=== PATIENT | female | born 1970 | race Caucasian/White ===

== ENCOUNTER 2016-04-06 15:02 | Emergency (ER) | END 2016-04-06 15:53 | disposition left against medical advice (07) | DX: Z53.21 Procedure and treatment not carried out due to patient leaving prior to being seen by health care provider (principal) ==

== ENCOUNTER 2016-04-06 16:55 | Emergency (ER) | END 2016-04-06 17:44 | disposition home or self-care (01) | DX: J20.9 Acute bronchitis, unspecified (principal) ==

== ENCOUNTER 2016-04-23 12:31 | Emergency (ER) | payer OTHER ==
[~2016-04-23] VITALS: Wt 71.0 kg
[~2016-04-23 12:31] MED LIST: AZIT250T94 PO; D-ME473S18 PO; NITR-58 PO; PHEN-616 PO; PRED20TA PO; TYL500 PO
[2016-04-23] MEDS ORDERED: FAMOTIDINE 20 MG TAB PO STA (13:24)
[2016-04-23] MEDS ORDERED: LIDOCAINE/MYLANTA 40 ML BTL PO STA (13:24)
[2016-04-23 14:19] LABS: ADD UMIC YES; URINE BILIRUBIN (Dip) NEGATIVE (NEGATIVE); URINE BLOOD (Dip) TRACE (NEGATIVE); URINE COLOR LT. YELLOW (YELLOW); URINE GLUCOSE (Dip) NEGATIVE (NEGATIVE); URINE KETONES (Dip) NEGATIVE (NEGATIVE); URINE LEUKOCYTE ESTERASE (Dip) NEGATIVE (NEGATIVE); URINE NITRITE (Dip) NEGATIVE (NEGATIVE); URINE TOTAL PROTEIN (Dip) NEGATIVE (NEGATIVE); URINE UROBILINOGEN (Dip) 0.2 E.U./dL (0.1-1.0)
[2016-04-23 14:20] LABS: BASOPHILS % 0.4 % (0.0-2.0); EOSINOPHILS # 0.2 10^3/ul (0.0-0.5); EOSINOPHILS % 1.8 % (0.0-7.0); HEMOGLOBIN 14.8 g/dl (12.0-16.0); LYMPHOCYTES # 3.9 10^3/ul (0.8-2.9); LYMPHOCYTES % 38.7 % (15.0-51.0); MEAN CORPUSCULAR HEMOGLOBIN 29.4 pg (29.0-33.0); MEAN CORPUSCULAR HGB CONC 34.3 g/dl (32.0-37.0); MEAN CORPUSCULAR VOLUME 85.8 fl (82.0-101.0); MEAN PLATELET VOLUME 7.6 fl (7.4-10.4); MONOCYTE # 0.5 10^3/ul (0.3-0.9); MONOCYTES % 5.1 % (0.0-11.0); NEUTROPHIL # 5.5 10^3/ul (1.6-7.5); PLATELET COUNT 312 10^3/UL (140-440); RED BLOOD COUNT 5.02 10^6/ul (4.20-5.40); RED CELL DISTRIBUTION WIDTH 13.8 % (11.5-14.5); UNCORRECTED WBC 10.2 10^3/ul (4.8-10.8); WHITE BLOOD COUNT 10.2 10^3/ul (4.8-10.8)
[2016-04-23 14:24] LABS: CONDITION 1
[2016-04-23 14:31] LABS: ALBUMIN 4.9 g/dl (3.3-4.9)
[2016-04-23 14:32] LABS: POTASSIUM 4.4 mmol/L (3.5-5.1)
[2016-04-23 14:34] LABS: BILIRUBIN,INDIRECT 0.5 mg/dl (0-1.1); BILIRUBIN,TOTAL 0.5 mg/dl (0.2-1.3); CREATININE 0.58 mg/dl (0.44-1.00)
[2016-04-23 14:35] LABS: ALBUMIN/GLOBULIN RATIO 1.44; CALCIUM 9.6 mg/dl (8.4-10.2); TOTAL PROTEIN 8.3 g/dl (6.1-8.1)
[2016-04-23 14:45] LABS: URINE RBCS 0-2 /HPF (0)
[2016-04-23] MEDS ORDERED: FAMO-18 PO (14:58)
[2016-04-23] MEDS ORDERED: LORAZEPAM 1 MG TAB PO ONE (15:00)
--- NOTE | 2016-04-23 15:17 | ERD ---
ER Documentation Chief Complaint Date/Time DATE: 04/23/16 TIME: 15:13 Chief Complaint ABDOMINAL PAIN AND ABDOMINAL DISTENTION FOR 4 DAYS. NAUSEA NO VOMITNG HPI Patient is a 45-year-old female who presents to the ED with epigastric pain. She states that she has a history of gastritis and takes omeprazole. She states that she has had these symptoms in the past. She ran out of her omeprazole. She complains of reflux and burning. She denies nausea, vomiting or diarrhea. She denies fever or chills. She denies diarrhea or constipation last bowel movement was today. No blood. Denies chest pain, shortness of breath or difficulty breathing. ROS All systems reviewed and are negative except as per history of present illness. Medications Home Meds Active Scripts Famotidine* (Pepcid*) 20 Mg Tablet, 20 MG PO BID for 30 Days, TAB Prov:NOEL SRIVASTAVA PA-C 04/23/16 Acetaminophen* (Tylenol*) 500 Mg Tab, 1000 MG PO Q8 Y for PAIN AND OR ELEVATED TEMP for 3 Days, TAB Prov:JAMESON POSEY 04/06/16 Dextromethorphan Hb-Promethazine Hcl (Promethazine DM Syrup) 473 Ml Syrup, 10 ML PO Q6H Y for COUGH, #4 OZ Prov:JAMESON POSEY 04/06/16 Azithromycin* (Zithromax*) 250 Mg Tablet, 250 MG PO .ZPACK DIRECTED, #6 TAB TAKE 500 MG (2 TABS) THE FIRST DAY THEN 250 MG (1 TAB) DAYS 2-5 Prov:JAMESON POSEY 04/06/16 Azithromycin* (Zithromax*) 250 Mg Tablet, 250 MG PO .ZPACK DIRECTED, #6 TAB TAKE 500 MG (2 TABS) THE FIRST DAY THEN 250 MG (1 TAB) DAYS 2-5 Prov:JUDIT ORANTES MD 11/03/15 Dextromethorphan Hb-Promethazine Hcl (Promethazine DM Syrup) 473 Ml Syrup, 5 ML PO Q6H Y for COUGH, #4 OZ Prov:JUDIT ORANTES MD 11/03/15 Prednisone* (Prednisone*) 20 Mg Tab, 40 MG PO DAILY for 5 Days, TAB Prov:JUDIT ORANTES MD 11/03/15 Reported Medications Nitrofurantoin Monohyd Macrocr* (Macrobid*) 100 Mg Capsr, 100 MG PO BID for 5 Days, CAP 02/14/14 Phenazopyridine Hcl* (Phenazopyridine Hcl*) 200 Mg Tablet, 200 MG PO TID, TAB 02/14/14 Allergies Allergies: Coded Allergies: No Known Allergy (Unverified , 11/03/15) PMhx/Soc History of Surgery: No Anesthesia Reaction: No Hx Neurological Disorder: No Hx Respiratory Disorders: No Hx Cardiac Disorders: No Hx Psychiatric Problems: No Hx Miscellaneous Medical Probl: No Hx Alcohol Use: No Hx Substance Use: No Hx Tobacco Use: No FmHx Family History: No coronary disease, No diabetes, No other Physical Exam Vitals Vital Signs Date Time Temp Pulse Resp B/P Pulse Ox O2 Delivery O2 Flow Rate FiO2 04/23/16 12:35 98.0 75 20 119/60 99 Physical Exam GENERAL: Well-developed, well-nourished female. Appears in no acute distress. HEAD: Normocephalic, atraumatic. EYES: Pupils are equally reactive bilaterally. EOMs grossly intact. No conjunctival erythema. ENT: Moist mucous membranes. No uvula deviation. No kissing tonsils. No exudates. NECK: Supple. No lymphadenopathy or thyromegaly. No meningismus. negative kernig. negative brudinski. LUNG: Clear to auscultation bilaterally. No rhonchi, wheezing, rales or coarse breath sounds. HEART: Regular rate and rhythm. No murmurs, rubs or gallops. ABDOMEN: No scars, ecchymosis or rashes noted. Soft, nontender, and nondistended. Positive bowel sounds in all four quadrants. No rebound tenderness , no guarding. (-) McBurneys point tenderness. No CVA tenderness. SKIN: Normal color. Warm and dry. No rashes or lesions. Capillary refill < 2 seconds Result Diagram: 04/23/16 1405 04/23/16 1405 Results 24 hrs Laboratory Tests Test 04/23/16 13:38 04/23/16 14:05 Urine Bilirubin NEGATIVE Urine Clarity CLEAR Urine Color LT. YELLOW Urine Epithelial Cells OCCASIONAL Urine Glucose NEGATIVE% Urine Hemoglobin TRACE Urine Ketones NEGATIVE Urine Leukocyte Esterase NEGATIVE Urine Microscopic RBC 0-2/HPF Urine Microscopic WBC NONE SEEN/HPF Urine Nitrite NEGATIVE Urine Specific [place] <=1.005 Urine Total Protein NEGATIVE Urine Urobilinogen 0.2 E.U./dL Urine pH 5.5 Alanine Aminotransferase (ALT/SGPT) 55IU/L Albumin 4.9g/dl Albumin/Globulin Ratio 1.44 Alkaline Phosphatase 121IU/L Anion Gap 19 Aspartate Amino Transf (AST/SGOT) 43IU/L Basophils # 0.010^3/ul Basophils % 0.4% Blood Urea Nitrogen 13mg/dl Calcium Level 9.6mg/dl Carbon Dioxide Level 27mmol/L Chloride Level 100mmol/L Creatinine 0.58mg/dl Direct Bilirubin 0.00mg/dl Eosinophils # 0.210^3/ul Eosinophils % 1.8% Globulin 3.40g/dl Glucose Level 97mg/dl Hematocrit 43.0% Hemoglobin 14.8g/dl Indirect Bilirubin 0.5mg/dl Lipase 81U/L Lymphocytes # 3.910^3/ul Lymphocytes % 38.7% Mean Corpuscular Hemoglobin 29.4pg Mean Corpuscular Hemoglobin Concent 34.3g/dl Mean Corpuscular Volume 85.8fl Mean Platelet Volume 7.6fl Monocytes # 0.510^3/ul Monocytes % 5.1% Neutrophils # 5.510^3/ul Neutrophils % 54.0% Nucleated Red Blood Cells # 0.010^3/ul Nucleated Red Blood Cells % 0.0/100WBC Platelet Count 80193^3/UL Potassium Level 4.4mmol/L Red Blood Count 5.0210^6/ul Red Cell Distribution Width 13.8% Sodium Level 142mmol/L Total Bilirubin 0.5mg/dl Total Protein 8.3g/dl White Blood Count 10.210^3/ul Current Medications Medications (Trade) Dose Ordered Sig/Sepideh Route PRN Reason Start Time Stop Time Status Last Admin Dose Admin Famotidine (Pepcid) 20 mg ONCE STAT PO 04/23/16 13:24 04/23/16 13:28 DC 04/23/16 13:36 Miscellaneous Medication (Gi Cocktail (2)) 40 ml ONCE STAT PO 04/23/16 13:24 04/23/16 13:28 DC 04/23/16 13:36 Lorazepam (Ativan) 1 mg ONCE ONCE PO 04/23/16 15:00 2/17/17 15:00 DC Procedures/MDM ER COURSE: I kept the patient and/or family informed of laboratory and diagnostic imaging results throughout the emergency room course. MEDICATIONS: GI cocktail. Tolerated medication well with no adverse reaction. Seen improvement in symptoms. LAB INTERPRETATION: CBC showed no evidence of systemic infection or severe anemia. CMP showed no evidence of electrolyte abnormalities, severe acidosis, alkalosis, renal failure , or liver disease. Lipase showed no evidence of acute pancreatitis. UA showed no evidence of leukocytes, nitrites or hematuria. Urine test was negative. MEDICAL DECISION MAKING: This is a 45-year-old female who presents with gastritis. Vital signs were reviewed. Patient is afebrile. Patient is not hypoxic. Patient is not toxic or ill-appearing. Patient likely has acid reflux versus gastritis. Low suspicion for ACS, AAA, perforated ulcer, bowel obstruction, cholecystitis, choledocholithiasis, cholangitis, pancreatitis, hepatic abscess, appendicitis, diverticulitis, gastroenteritis, hepatitis, peptic ulcer disease, HELLP syndrome. Low suspicion for ACS, PE, AAA, dissection, DVT. Low suspicion for cardiac emergencies. Heart score is 0. I do not think further workup regarding heart disease needs to be done in the ED. Patient states completel improvement in symptoms after GI cocktail given in the ED. DISCHARGE: At this time, patient is stable for discharge and outpatient management with no new complaints during the ER course. Patient was sent home with pepcid. Patient will be discharged home with instructions to recheck for new or worsening symptoms such as fever, nausea, weakness, LOC and to follow up with primary care in the next 1-2 days. Patient was advised to return to the ER for any new or worsening symptoms. Plan was discussed and patient and/or family understands and agrees. Home instructions were given. Departure Diagnosis: Primary Impression: Gastritis Gastritis type: unspecified gastritis Chronicity: chronic Gastritis bleeding: without bleeding Qualified Code: K29.50 - Chronic gastritis without bleeding, unspecified gastritis type Condition: Stable Patient Instructions: Gastritis (Adult) Referrals: POLINA CHARLES MD (PCP) Additional Instructions: Llame al doctor JUDAHANA y gregor charline MELANIE PARA DENTRO DE 1-2 SALAZAR.Dgale a la secretaria que nosotros le instruimos hacer esta melanie.Avise o llame si aguayo condicin se empeora antes de la melanie. Regresa aqui si peor o no mejor. NOEL SRIVASTAVA PA-C Apr 23, 2016 15:17
[2016-04-23 15:28] VITALS: BP 122/65; PULSE 76; RESP 19; TEMP 98.4
== END 2016-04-23 15:30 | disposition home or self-care (01) ==
LOC: FTE 12:31
DX: K29.50 Unspecified chronic gastritis without bleeding (principal)
CPT/HCPCS: 36415; 80053; 81001; 81003; 83690; 85025; 99283

== ENCOUNTER 2017-07-07 11:15 | Emergency (ER) | END 2017-07-07 12:20 | disposition home or self-care (01) ==

== ENCOUNTER 2017-08-15 10:12 | Emergency (ER) | END 2017-08-15 10:49 | disposition home or self-care (01) ==

== ENCOUNTER 2017-12-15 15:59 | Emergency (ER) | END 2017-12-15 20:25 | disposition home or self-care (01) ==